=== PATIENT | male | born 1945 | race African-American/Black ===

== ENCOUNTER 2018-02-22 20:33 | Inpatient (IN) | payer MEDICARE, MEDICAID ==
[~2018-02-22] VITALS: Ht 167.6 cm; Wt 95.9 kg
[~2018-02-22 20:33] MED LIST: amlodipine; aspirin; atorvastatin
[2018-02-23] MEDS ORDERED: MORPHINE SULFATE 4 MG/ML CPJ (NOT FOR IM USE) IV STA (00:31)
[2018-02-23] MEDS ORDERED: ONDANSETRON HCL 4MG/2ML INJ IV STA (00:31)
[2018-02-23] MEDS ORDERED: SODIUM CHLORIDE 0.9% 1,000 ML IV ONE (00:45)
[2018-02-23 00:47] LABS: CLARITY URINE CLEAR (CLEAR); COLOR URINE YELLOW (YELLOW); KETONES URINE TRACE (NEGATIVE); LEUKOCYTE ESTERASE URINE TRACE (NEGATIVE); NITRITE URINE NEGATIVE (NEGATIVE); OCCULT BLOOD URINE 2+ (NEGATIVE); PROTEIN URINE 2+ (NEGATIVE); SPECIFIC GRAVITY URINE 1.022 (1.005-1.030)
[2018-02-23 00:49] LABS: BASOPHILS % 0.3 % (0.0-2.0); EOSINOPHILS % 0.4 % (0.0-5.0); HEMATOCRIT. 43.2 % (42.0-52.0); HEMOGLOBIN. 14.3 g/dL (14.0-18.0); LYMPHOCYTES % 16.5 % (20.0-50.0); MEAN CORPUSCULAR HEMOGLOBIN 30.4 pg (28.0-32.0); MEAN CORPUSCULAR VOLUME 91.9 fL (80.0-94.0); MEAN PLATELET VOLUME 7.5 fl (7.4-10.4); MONOCYTES % 10.2 % (2.0-8.0); NEUTROPHILS % 72.6 % (40.0-76.0); PLATELET 267 x1000/uL (130-400); RED CELL DISTRIBUTION WIDTH 14.4 % (11.6-14.6)
[2018-02-23 00:52] LABS: INR 1.1; PROTHROMBIN TIME 11.4 sec (9.1-11.1)
[2018-02-23 00:58] LABS: CHLORIDE 107 mEq/L (98-107)
[2018-02-23] MEDS ORDERED: ACETAMINOPHEN 325MG TABLET PO ONE (01:15)
[2018-02-23] MEDS ORDERED: SODIUM CHLORIDE 0.9% 1000ML BAG (SEPSIS BOLUS) IV ONE (01:45)
[2018-02-23] MEDS ORDERED: CEFTRIAXONE 1 G PREMIX 50 ML IV SCH (01:56)
[2018-02-23] MEDS ORDERED: ALBUTEROL (0.083%) 2.5MG/3ML NEB HHN ONE (03:00)
[2018-02-23] MEDS: ALBUTEROL (0.083%) 2.5MG/3ML NEB HHN SCH (04:25)
[2018-02-23] MEDS ORDERED: ASPIRIN 325MG EC TABLET PO ONE (04:30)
[2018-02-23 09:00] VITALS: BP 151/85
[2018-02-23] MEDS ORDERED: ACETAMINOPHEN 650MG SUPP PR PRN (11:00)
[2018-02-23] MEDS ORDERED: IPRATROPIUM/ALBUTEROL 0.5-3(2.5)MG/3ML NEB INH PRN (11:00)
[2018-02-23] MEDS ORDERED: GUAIFENESIN 200MG/10ML SUGAR FREE UDC PO PRN (11:00)
[2018-02-23] MEDS ORDERED: CLONIDINE 0.1MG TABLET PO PRN (11:00)
[2018-02-23] MEDS ORDERED: DIPHENHYDRAMINE 50MG/ML VIAL IV PRN (11:00)
[2018-02-23] MEDS ORDERED: DOCUSATE SODIUM 100MG CAPSULE PO PRN (11:00)
[2018-02-23] MEDS ORDERED: ONDANSETRON HCL 4MG/2ML INJ IV PRN (11:00)
[2018-02-23] MEDS ORDERED: HYDROCODONE/ACETAMINOPHEN 5/325MG TABLET PO PRN (11:00)
[2018-02-23] MEDS ORDERED: ACETAMINOPHEN 325MG TABLET PO PRN (11:00)
[2018-02-23] MEDS ORDERED: LORAZEPAM 0.5MG TABLET PO PRN (11:00)
[2018-02-23] MEDS ORDERED: NA PHOS,M-B/NA PHOS,DI-BA ENEMA 118ML PR PRN (11:00)
[2018-02-23] MEDS ORDERED: MAGNESIUM/ALUMINUM HYDROXIDE/SIMETHICONE 30ML UDC PO PRN (11:00)
[2018-02-23 12:00] VITALS: BP 144/73
[2018-02-23] MEDS ORDERED: INFLUENZA VIRUS VACCINE(AFLURIA) 0.5ML SYR IM ONE (13:00)
[2018-02-23] MEDS ORDERED: PNEUMOCOCCAL 23-VAL P-SAC VAC 0.5 ML IM ONE (13:00)
[2018-02-23] MEDS: LEVOFLOXACIN 500MG PREMIX 100 ML IV SCH (14:28)
[2018-02-23] MEDS ORDERED: DEXTROSE 50% WATER 50ML SYRINGE IV PRN ×2 (14:30→15:15)
[2018-02-23 16:00] VITALS: BP 159/83
[2018-02-23] MEDS: GABAPENTIN 100MG CAPSULE PO SCH ×2 (17:00→17:54)
[2018-02-23] MEDS ORDERED: BLOOD SUGAR DIAGNOSTIC STRIP TEST SCH (17:20)
[2018-02-23] MEDS ORDERED: INSULIN LISPRO 100 UNITS/ML SUBCUT SCH (17:50)
[2018-02-23] MEDS: INSULIN LISPRO 100 UNITS/ML SUBCUT SCH ×2 (17:50→22:24)
[2018-02-23] MEDS: AMLODIPINE 5MG TABLET PO SCH (17:54)
[2018-02-23] MEDS: BLOOD SUGAR DIAGNOSTIC STRIP TEST SCH ×2 (18:09→22:13)
[2018-02-23 18:17] LABS: CREATINE KINASE MB FRACTION 4.6 ng/mL (0.5-3.6)
[2018-02-23] MEDS: ENOXAPARIN 30MG/0.3ML SYR SUBCUT SCH (18:28)
[2018-02-23 20:25] LABS: *BARBITURATES SCREEN URINE NEGATIVE (NEGATIVE); *BENZODIAZEPINES SCREEN URINE NEGATIVE (NEGATIVE); *COCAINE SCREEN URINE NEGATIVE (NEGATIVE); CANNABINOID URINE SCREEN NEGATIVE (NEGATIVE); METHADONE URINE SCREEN NEGATIVE (NEGATIVE); OPIATES URINE SCREEN PRESUMTIVE POSITIVE (NEGATIVE); PHENCYCLIDINE URINE SCREEN NEGATIVE (NEGATIVE)
[2018-02-23 20:26] LABS: *AMPHETAMINES SCREEN URINE NEGATIVE (NEGATIVE)
[2018-02-23 20:47] VITALS: BP 158/79
[2018-02-23] MEDS: OSELTAMIVIR 75MG CAPSULE PO SCH (21:14)
[2018-02-24] VITALS: BP 177/93
[2018-02-24 02:13] LABS: CREATINE KINASE MB FRACTION 4.4 ng/mL (0.5-3.6)
[2018-02-24 04:00] VITALS: BP 148/75
[2018-02-24] MEDS: ENOXAPARIN 30MG/0.3ML SYR SUBCUT SCH (06:55)
[2018-02-24] MEDS: BLOOD SUGAR DIAGNOSTIC STRIP TEST SCH ×3 (06:59→17:20)
[2018-02-24 07:35] LABS: BASOPHILS % 0.4 % (0.0-2.0); HEMATOCRIT. 37.2 % (42.0-52.0); HEMOGLOBIN. 12.5 g/dL (14.0-18.0); MEAN CORPUSCULAR HEMOGLOBIN 30.4 pg (28.0-32.0); MEAN CORPUSCULAR VOLUME 90.4 fL (80.0-94.0); MEAN PLATELET VOLUME 7.4 fl (7.4-10.4); MONOCYTES % 10.1 % (2.0-8.0); NEUTROPHILS % 66.5 % (40.0-76.0); PLATELET 247 x1000/uL (130-400); RED BLOOD CELL COUNT 4.11 mill/uL (4.7-6.1); RED CELL DISTRIBUTION WIDTH 14.1 % (11.6-14.6)
[2018-02-24] MEDS: INSULIN LISPRO 100 UNITS/ML SUBCUT SCH ×3 (07:50→17:27)
[2018-02-24 07:52] LABS: CHLORIDE 108 mEq/L (98-107)
[2018-02-24 08:07] LABS: LDL CHOLESTEROL 74 mg/dL (5-100)
[2018-02-24 08:09] LABS: T4 FREE 1.17 ng/dL (0.76-1.46)
[2018-02-24 08:10] LABS: HDL CHOLESTEROL 27 mg/dL (40-59)
[2018-02-24 08:30] VITALS: BP 140/70
[2018-02-24] MEDS: GABAPENTIN 100MG CAPSULE PO SCH ×2 (08:50→17:01)
[2018-02-24] MEDS: AMLODIPINE 5MG TABLET PO SCH (08:50)
[2018-02-24] MEDS: OSELTAMIVIR 75MG CAPSULE PO SCH (08:50)
[2018-02-24] MEDS ORDERED: ASPIRIN 81MG TABLET PO SCH (09:00)
[2018-02-24] MEDS ORDERED: SODIUM CHLORIDE 0.45% 1,000 ML IV SCH (10:45)
[2018-02-24] MEDS ORDERED: METOPROLOL TARTRATE 25MG TABLET PO NR (10:45)
[2018-02-24 12:08] VITALS: BP 137/75
[2018-02-24 13:00] VITALS: BP 124/66
[2018-02-24] MEDS: LEVOFLOXACIN 500MG PREMIX 100 ML IV SCH (14:28)
[2018-02-24 15:32] LABS: CREATINE KINASE MB FRACTION 4.6 ng/mL (0.5-3.6)
[2018-02-24 17:28] VITALS: BP 122/70
[2018-02-24] MEDS ORDERED: METOPROLOL TARTRATE 25MG TABLET PO SCH (21:00)
== END 2018-02-24 18:20 | disposition home or self-care (01) | DRG 682 ==
LOC: ER 20:33 → 6WST 02-23 02:16 → EDBEDREQTM 02-23 02:22 → EDBEDREQ 02-23 02:22 → ENRESERV 02-23 08:04
PROVIDERS: ADMIT Internal Medicine; ATTEND Internal Medicine
DX: N17.9 Acute kidney failure, unspecified (principal); I50.33 Acute on chronic diastolic (congestive) heart failure; N39.0 Urinary tract infection, site not specified; E87.2 Acidosis; J10.1 Influenza due to other identified influenza virus with other respiratory manifestations; E11.40 Type 2 diabetes mellitus with diabetic neuropathy, unspecified; E11.65 Type 2 diabetes mellitus with hyperglycemia; E66.9 Obesity, unspecified; E78.5 Hyperlipidemia, unspecified; E86.0 Dehydration; I11.0 Hypertensive heart disease with heart failure; K76.0 Fatty (change of) liver, not elsewhere classified; R26.9 Unspecified abnormalities of gait and mobility; E11.319 Type 2 diabetes mellitus with unspecified diabetic retinopathy without macular edema; Z68.34 Body mass index [BMI] 34.0-34.9, adult; Z79.4 Long term (current) use of insulin
CPT/HCPCS: 36415; 71045; 73610; 76700; 80061; 80305; 82550; 82553; 82962; 83036; 83605; 83880; 84145; 84439; 84443; 84484; 87804; 93005; 93306; 93970; 96365; 97162; 99285; J0696; J1650; J1815; J1956; J7030; J7050; J7611

== ENCOUNTER 2018-05-15 02:34 | Emergency (ER) | payer MEDICARE, MEDICAID ==
[~2018-05-15] VITALS: Ht 167.6 cm; Wt 100.0 kg
[~2018-05-15 02:34] MED LIST changes: -amlodipine; -atorvastatin
[2018-05-15 03:39] LABS: BASOPHILS % 0.5 % (0.0-2.0); EOSINOPHILS % 2.7 % (0.0-5.0); HEMATOCRIT. 39.1 % (42.0-52.0); HEMOGLOBIN. 13.1 g/dL (14.0-18.0); LYMPHOCYTES % 30.9 % (20.0-50.0); MEAN CORPUSCULAR HEMOGLOBIN 29.9 pg (28.0-32.0); MEAN CORPUSCULAR VOLUME 89.3 fL (80.0-94.0); MEAN PLATELET VOLUME 7.4 fl (7.4-10.4); MONOCYTES % 6.3 % (2.0-8.0); NEUTROPHILS % 59.6 % (40.0-76.0); PLATELET 300 x1000/uL (130-400); RED BLOOD CELL COUNT 4.38 mill/uL (4.7-6.1); RED CELL DISTRIBUTION WIDTH 14.6 % (11.6-14.6)
[2018-05-15 03:40] LABS: CHLORIDE 110 mEq/L (98-107)
[2018-05-15 05:40] VITALS: BP 124/63
== END 2018-05-15 06:10 | disposition home or self-care (01) ==
LOC: ER 02:34
DX: R60.9 Edema, unspecified (principal); E11.9 Type 2 diabetes mellitus without complications; I10 Essential (primary) hypertension
CPT/HCPCS: 36415; 71045; 83880; 93005; 93970; 99284

== ENCOUNTER 2019-02-15 21:15 | Emergency (ER) | payer MEDICAID, MEDICARE ==
[~2019-02-15] VITALS: Ht 167.6 cm; Wt 89.0 kg
[2019-02-15] MEDS ORDERED: SODIUM CHLORIDE 0.9% 1,000 ML IV ONE (22:34)
[2019-02-15 23:14] LABS: BASOPHILS % 0.5 % (0.0-2.0); EOSINOPHILS % 1.9 % (0.0-5.0); HEMATOCRIT. 40.9 % (42.0-52.0); HEMOGLOBIN. 13.7 g/dL (14.0-18.0); LYMPHOCYTES % 26.3 % (20.0-50.0); MEAN CORPUSCULAR HEMOGLOBIN 30.4 pg (28.0-32.0); MEAN CORPUSCULAR VOLUME 90.5 fL (80.0-94.0); MEAN PLATELET VOLUME 8.2 fl (7.4-10.4); MONOCYTES % 5.3 % (2.0-8.0); PLATELET 303 x1000/uL (130-400); RED BLOOD CELL COUNT 4.52 mill/uL (4.7-6.1)
[2019-02-15 23:20] LABS: CHLORIDE 102 mEq/L (98-107)
[2019-02-15 23:25] LABS: PHOSPHORUS 3.2 mg/dL (2.5-4.9)
[2019-02-15] MEDS ORDERED: INSULIN REGULAR (HUMULIN R) 300UNITS/3ML IV NR (23:45)
[2019-02-16] MEDS ORDERED: INSULIN GLARGINE UD 100 UNITS/ML SYR SUBCUT ONE
[2019-02-16 00:48] VITALS: BP 145/83
== END 2019-02-16 00:52 | disposition home or self-care (01) ==
LOC: ER 21:15
DX: E11.65 Type 2 diabetes mellitus with hyperglycemia (principal); I10 Essential (primary) hypertension; Z79.4 Long term (current) use of insulin; Z79.82 Long term (current) use of aspirin
CPT/HCPCS: 36415; 80048; 82962; 83735; 84100; 85025; 96361; 96372; 96374; 99283; J1815; J7030

== ENCOUNTER 2020-03-26 12:28 | Emergency (ER) | payer MEDICARE, MEDICAID ==
[~2020-03-26] VITALS: Ht 167.6 cm; Wt 95.0 kg
[2020-03-26 13:20] LABS: BASOPHILS % 0.7 % (0.0-2.0); EOSINOPHILS % 2.1 % (0.0-5.0); HEMATOCRIT. 36.6 % (42.0-52.0); HEMOGLOBIN. 12.3 g/dL (14.0-18.0); LYMPHOCYTES % 25.4 % (20.0-50.0); MEAN CORPUSCULAR HEMOGLOBIN 30.4 pg (28.0-32.0); MEAN CORPUSCULAR VOLUME 90.8 fL (80.0-94.0); MONOCYTES % 8.8 % (2.0-8.0); PLATELET 612 x1000/uL (130-400); RED BLOOD CELL COUNT 4.03 mill/uL (4.7-6.1); RED CELL DISTRIBUTION WIDTH 13.8 % (11.6-14.6)
[2020-03-26 13:29] LABS: CHLORIDE 107 mEq/L (98-107)
[2020-03-26 13:30] LABS: INR 1.1; PROTHROMBIN TIME 11.2 sec (9.6-11.0)
[2020-03-26] MEDS ORDERED: ASPIRIN 325MG EC TABLET PO ONE (14:30)
[2020-03-26] MEDS ORDERED: SODIUM CHLORIDE 0.9% 1,000 ML IV ONE (14:30)
[2020-03-26 16:01] LABS: CLARITY URINE CLEAR (CLEAR); COLOR URINE YELLOW (YELLOW); KETONES URINE NEGATIVE (NEGATIVE); LEUKOCYTE ESTERASE URINE 3+ (NEGATIVE); NITRITE URINE NEGATIVE (NEGATIVE); OCCULT BLOOD URINE NEGATIVE (NEGATIVE); PROTEIN URINE NEGATIVE (NEGATIVE); SPECIFIC GRAVITY URINE 1.021 (1.005-1.030)
[2020-03-26] MEDS ORDERED: CEFTRIAXONE 1 G PREMIX 50 ML IV ONE (17:00)
[2020-03-26] MEDS ORDERED: ACETAMINOPHEN WITH CODEINE 300/30MG TABLET PO ONE (18:00)
[2020-03-27] MEDS ORDERED: IBUPROFEN 600MG TABLET PO NR (01:30)
[2020-03-27 02:31] VITALS: BP 140/81
== END 2020-03-27 02:50 | disposition short-term general hospital (02) ==
LOC: ER 12:42 → CANBEDREQ 03-27 05:08
DX: R53.1 Weakness (principal); R42 Dizziness and giddiness; E86.0 Dehydration; N30.90 Cystitis, unspecified without hematuria; E11.9 Type 2 diabetes mellitus without complications; E78.00 Pure hypercholesterolemia, unspecified; I10 Essential (primary) hypertension; F17.290 Nicotine dependence, other tobacco product, uncomplicated; F12.10 Cannabis abuse, uncomplicated
CPT/HCPCS: 36415; 70450; 71045; 73560; 80053; 81003; 82962; 84484; 85025; 85610; 93005; 96361; 96365; 96366; 99285; J0696; J7030

== ENCOUNTER 2022-04-04 14:56 | Emergency (ER) | payer MEDICARE, MEDICAID ==
[~2022-04-04] VITALS: Ht 167.6 cm; Wt 70.0 kg
[2022-04-04 14:59] VITALS: BP 141/76
[2022-04-04] MEDS ORDERED: HYDROCODONE/ACETAMINOPHEN 5/325MG TABLET PO STA (18:20)
[2022-04-04 20:56] LABS: BASOPHILS % 0.2 % (0.0-2.0); HEMATOCRIT. 33.2 % (42.0-52.0); HEMOGLOBIN. 10.8 g/dL (14.0-18.0); LYMPHOCYTES % 9.1 % (20.0-50.0); MEAN CORPUSCULAR HEMOGLOBIN 29.2 pg (28.0-32.0); MEAN CORPUSCULAR VOLUME 89.6 fL (80.0-94.0); MEAN PLATELET VOLUME 6.7 fl (7.4-10.4); MONOCYTES % 4.5 % (2.0-8.0); NEUTROPHILS % 86.2 % (40.0-76.0); PLATELET 513 x1000/uL (130-400); RED BLOOD CELL COUNT 3.71 mill/uL (4.7-6.1); RED CELL DISTRIBUTION WIDTH 15.1 % (11.6-14.6)
[2022-04-04 21:06] LABS: CHLORIDE 106 mEq/L (98-107)
[2022-04-04 21:09] LABS: PROTHROMBIN TIME 10.8 sec (9.6-11.0)
[2022-04-04] MEDS ORDERED: IOHEXOL-350 100 ML BOTTLE ONE (22:07)
== END 2022-04-05 02:00 | disposition left against medical advice (07) ==
LOC: ER 14:56
DX: I63.9 Cerebral infarction, unspecified (principal); D64.9 Anemia, unspecified; K85.90 Acute pancreatitis without necrosis or infection, unspecified; E11.9 Type 2 diabetes mellitus without complications; E78.00 Pure hypercholesterolemia, unspecified; I10 Essential (primary) hypertension
CPT/HCPCS: 36415; 70450; 71045; 71260; 72125; 72170; 74177; 80053; 83690; 84484; 85025; 85610; 93005; 99285; Q9967